=== PATIENT | female | born 1955 | race Caucasian/White ===

== ENCOUNTER 2017-04-18 23:26 | Emergency (ER) | payer BC ==
[2017-04-18] MEDS ORDERED: LORazepam INJ* 2 MG/ML 1 ML VIAL IV ONE (23:38)
[2017-04-18] MEDS ORDERED: NS 0.9% 1000 ML* 1,000 ML IV ONE (23:38)
--- OUTSIDE RECORDS SUMMARY | 2017-04-18 23:51 | XMS REPORT ---
:1955 External Reference #:[id number] Author Organization [facility] Address [address] [place] [address] Phone [phone] Care Team Providers Name Role Phone Jay Hicks MD Care Team Information Contracts Director Unavailable Jay Hicks MD Primary Care Physician Unavailable Payers Type Date Identification Numbers Payment Provider Subscriber Commercial Effective: Policy Number: BC/BS Of CHERELLE Butler 2009 [id number] [employer] Name: Darshan [address] [id number] PayID: [id number] [place] [address] Problems Date Description Provider Status Onset: 05/05/2010 Depressive disorder Reece Kimbrough M.D. Active Onset: 01/18/2011 Gastroesophageal reflux disease Jay Hicks M.D. Active Onset: 01/18/2011 Anemia Jay Hicks M.D. Active Onset: 03/23/2011 Hyperlipidemia Jay Hicks M.D. Active Onset: 11/09/2012 Obstructive sleep apnea syndrome Jay Hicks M.D. Active Onset: 11/11/2015 Knee pain Jay Hicks M.D. Active Onset: 04/13/2016 Carpal tunnel syndrome of left Jay Hicks M.D. Active wrist Onset: 04/12/2017 Pain in limb Jay Hicks M.D. Active Onset: 04/12/2017 Symptom of skin and integumentary Jay Hicks M.D. Active tissue Onset: 12/07/2016 Pulse slow Jay Hicks M.D. Active Onset: 10/09/2014 Blood chemistry abnormal Jay Hicks M.D. Inactive Inactive: 12/27/2016 Onset: 02/18/2016 Malaise and fatigue Jay Hicks M.D. Inactive Inactive: 12/27/2016 Onset: 02/18/2016 Iron deficiency anemia secondary to Jay Hicks M.D. Inactive inadequate dietary iron intake Inactive: 12/27/2016 Onset: 02/18/2016 Depressive disorder Jay Hicks M.D. Inactive Inactive: 12/27/2016 Onset: 04/13/2016 Iron deficiency Jay Hicks M.D. 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 needed Fexofenadine 11/03 Active Tablets 180mg 1 po qd prn [facility] Nasonex 04/29 Active Suspension 50mcg/Act 1unit 2 sprays Jay FTaras /2011 s each Shallish, nostril M.D. every day, as needed Calcium 500 +D 00 Active Tablets 500-400mg 1 po qd Unknown /0000 -Unit Benadryl Active Tablets 25mg one by Unknown /0000 mouth at bedtime Echinacea Active Capsules 62.5mg 3 by mouth Unknown three times a day as needed Note 04/13 Hx needs wrist Jay F. /2015 splint for Kurt, - left carpal M.D. 12/24 tunnel /2016 Physical 11/10 Hx treatment Jay FTra[facility] and Kurt, - evaluation M.D. 02/17 right knee pain Escitalopram 12/13 Hx Tablets 10mg 90tab take 1 F41.1 Jay F. Oxalate s tablet by Kurt, - mouth every M.D. Jublia 10/08 Hx Solution 10% 4ml apply to 110.1 Shwetha nail qd Jonny - Veronica-C 11/10 Bernie Contour 10/08 Hx Strips 100un use as 790.6 Shwetha Next Blood its directed to Jonny, Glucose Test - take Veronica-C 03/25 fasting blood sugar and one post prandial reading daily Bernie Microlet 10/08 Hx Misc 100un test qd 790.6 Shwetha Lancets its Kimberly Fuller-C 03/25 Hemetab 09/30 Hx Tablets 22-6-1-0. 180ta 2 by mouth Jay F. /2014 025mg bs every day Kurt - M.D. 02/28 Cymbalta 05/[address] 30mg 90cap 1 po qd Jay F. /2012 Part s Kurt - M.D. 08/20 Pravastatin 01/11 Hx Tablets 10mg 30tab Take One Jay F. Sodium s Tablet By Kurt, - Mouth Once M.D. 05/27 Calcium 600 + 11/03 Hx Tablets 600-400mg 2 PO qd [facility] Melatonin 11/03 Hx Capsules 1mg 1-2 po q prn [facility] Pravastatin 10/02 Hx Tablets 10mg 30tab 1 po qd Jay F. Sodium s Kurt - M.D. 11/03 Omeprazole 06/[address] 20mg 60cap take 1 Stephanie /2012 s capsule by Nenita, - mouth once [employer] 02/28 Doxycycline 05/28 Hx Capsules 100mg 2caps 2 po x one E906.4 Shwetha Hyclate dose Jonny, - Afnp-C 06/23 Lexapro 01/18 Hx Tablets 10mg 90tab 1 /2po qd Jay F. Kimberly Sierra M.D. 05/11 Permethrin 11/24 Hx Cream 5% 60gm apply to 133.0 skin from Erum, - neck to [employer] 01/18 soles feet; remove after 12-14 hrs Biferarx 09/26 Hx Tablets 22-6-1-0. 180ta 2 by mouth Jay F. 025mg bs every day Kimberly Hicks M.D. 09/30 Dcommand> 09/23 Hx Tablets 22-6-1-0. Jay F. 025mg Kimberly Hicks M.D. 01/18 Famotidine 06/12 Hx Tablets 20mg 60tab take 1 Jay F. s tablet by Kurt, - mouth M.D. 05/28 qd-bid Azithromycin 06/12 Hx Tablets 250mg 6tabs take 2 Jay . tablets by Kurt, - mouth on M.D. 06/19 day 1 1 tablet on days 2 through 5 Physical 12/31 Hx treatment Jay FTaras and Kurt - evaluation M.DTaras 03/01 Bilateral Carpal Tunnel Lexapro 03/18 Hx Tablets 20mg 120ta 1.5 po qd Jay FTaras bs Kimberly Hicks M.D. 11/24 Qvar 04/13 Hx Aerosol 40mcg/Act 1unit 2 puff bid Jay F. s Kimberly Hicks M.D. 12/20 Tussionex 04/06 Hx Liquid ER 100cc 1 tsp Lynn q12hrs prn Opal, - cough Afnp-C 04/13 Pen VK 03/30 Hx Tablets 500mg 20tab 1 po bid 462 Darian A. /2007 Kimberly Sloan M.D. 04/09 Entex Pse 01/05 Hx Caps ER 120-400 28cap 1 PO PO bid Stephanie 12HR s alesha Steiner - M.DTaras 03/30 Chantix 11/30 Hx 1unit 1 starter 305.1 Jay F. /2007 s pack for A Kurt, - month,then M.D. 02/28 refill maintenance packs Chantix 11/30 Hx Misc 1unit 1 starter Jay F. /2007 s pack as Kurt, - directed, M.DTaras 11/30 then refill maintenance packs x 3 months Remeron Soltab 04/07 Hx Tablets 15mg 30tab 1 PO hs Jay F. /2006 s Kurt - M.DTaras 11/30 Lexapro 06/16 Hx Tablets 20mg 90tab 1 po qd Jay F. /2006 s Kurt - M.DTaras 01/18 Nexium 04/05 Hx CPDR 40mg 90uni Take One Jay F. /2004 ts Capsule By Kurt, - Mouth Every M.D. Celebrex 11/20 Hx Tabs 200mg 60tab 1 po qd Mahnaz R jermaine Son - [employer]-C 01/05 Jenn 07/16 Hx 180mg 90uni 1 po qd Jay F. /2003 susan Hicks - M.DTaras 03/23 Nasonex 07/16 Hx 50mcg 1unit 2 sprays Jay F. s each Kurt, - nostril qd M.D. 04/29 Mentax 06/28 Hx Cream Cream 1Tube Apply [facility] Mahnaz To Web Greer Son, - Toes Q [employer]-C 01/05 Lotrimin CR 06/28 Hx 15gm apply bid Jay F. to Kurt, - afftected M.D. 01/05 Wrist Splint, 10/24 Hx 1unit RT-Hand Tian J. Restrictive /2002 s Medium; Finver, Flex/Extend - Wear ALL M.D. 12/23 Day Exept Sleep Lexapro 11/21 Hx 20mg 45uni 1 1\\2 po qd Jay F. /2001 susan Hicks - M.DTaras 06/16 Keflex 08/05 Hx 250mg 21uni 1 PO tid Jay F. Kimberly Marx M.D. 11/21 Penicillin VK 02/18 Hx 250mg 30uni One tid Israel Angulo Kimberly Ma M.D. 02/28 Jenn 09/26 Hx 60mg 60uni 1 PO bid Jay F. ts Kimberly Hicks M.D. 07/16 Nasonex 09/26 Hx 50mcg 1unit 2 Sprays Jay . s Each Kimberly Hicks Nostril qd M.DTaras 07/16 Amoxicillin 04/22 Hx Tablets 500mg 30tab 1 Tablet 3 Jay F. s Times Daily Kimberly Hicks M.D. 05/01 Entex Pse 04/22 Hx 20uni 1 bid prn Jay F. ts Congestion Kimberly Hicks M.D. 09/26 Tessalon 07/16 Hx 200mg 30uni Q 6 HR prn Israel Rodríguez Kimberly Ma M.D. 09/26 Robitussin ac 07/13 Hx 4Oz 1-2 TSP PO Israel Angulo Q4H prn Kimberly Mckeon Cough Eric.Sarthak 07/18 Tessalon 07/13 Hx 200mg 3samp 1 PO tid Israel Rodríguez les prn Kimberly Mckeon M.D. 07/16 Lo Ovral 04/28 Hx 1Pak Take One Daily as Medicine - Directed [facility] 01/15 Day Cycle Of Zovirax 06/12 Hx 200mg 40uni 1 PO 4-5 Shwetha ts Times Per Jonny, - Day Afnp-C 08/05 Amoxicillin 07/13 Hx Tablets 500mg 20tab 1 bid Ranjan STaras jermaine Downing M.D. - 07/23 Omeprazole CR Hx Capsules D 10mg Unknown /0000 - 06/23 Multivitamins Hx Tablets 30tab 1 po qd Unknown /0000 s - 11/13 Medications Administered in Office Medication Date Status Form Strength Qnty SIG Indications Ordering Provider TB Intradermal Administered Injection Shwetha Test 015 Jonny, Ivannp-C TB Intradermal Administered Injection Shwetha Test 014 Jonny, Afnp-C TB Intradermal Administered Injection Jay F. Test 013 Cb Hicks TB Intradermal Administered Injection Jay FTaras Test 012 Cb Hicks TB Intradermal Administered Injection Nurse, Test 999 Nurse Immunizations CPT Code Status Date Vaccine Lot # [id number] Given 03/23/2016 Influenza Vac, Quadrivalent, Slit Virus, Im [id number] Given 05/11/2012 Tdap Tetanus, W Pertussis [id number] Given 05/11/2012 DO Not Use Split Influenza Virus Vaccine [id number] Given 05/17/2005 Td Immunization, For Use In Individuals 7 Years Or [id number] Older [id number] Given 05/17/2005 Tetanus And Diptheria Adult Preservative Free >7Yrs Vital Signs Date Vital Result Comment 04/12/2017 BP Systolic 108 mmHg BP Diastolic 62 mmHg Heart Rate 68 /min Body Temperature 97.9 F Respiratory Rate 16 /min Height 66 inches 5'6" Weight 182.25 lb BMI (Body Mass Index) 29.4 kg/m2 12/07/2016 BP Systolic 100 mmHg BP Diastolic 66 mmHg Heart Rate 64 /min Body Temperature 98.2 F Respiratory Rate 16 /min Height 66 inches 5'6" Weight 172.00 lb BMI (Body Mass Index) 27.8 kg/m2 04/13/2016 BP Systolic 140 mmHg BP Diastolic 78 mmHg Heart Rate 64 /min Body Temperature 98.1 F Respiratory Rate 16 /min Height 66 inches 5'6" 03/23/2016 BP Systolic 112 mmHg BP Diastolic 70 mmHg Heart Rate 80 /min Body Temperature 97.9 F Height 66 inches 5'6" Weight 177.00 lb BMI (Body Mass Index) 28.6 kg/m2 02/18/2016 BP Systolic 122 mmHg BP Diastolic 80 mmHg Heart Rate 64 /min Body Temperature 98.7 F Respiratory Rate 18 /min Height 65.5 inches 5'5.50" Weight 177.38 lb BMI (Body Mass Index) 29.1 kg/m2 11/11/2015 BP Systolic 124 mmHg BP Diastolic 70 mmHg Heart Rate 72 /min Body Temperature 98.1 F Respiratory Rate 16 /min Height 65.5 inches 5'5.50" Weight 176.00 lb BMI (Body Mass Index) 28.8 kg/m2 07/28/2015 BP Systolic 134 mmHg BP Diastolic 74 mmHg Heart Rate 72 /min Body Temperature 98.1 F Respiratory Rate 16 /min Height 65.5 inches 5'5.50" Weight 181.12 lb BMI (Body Mass Index) 29.7 kg/m2 06/27/2015 BP Systolic 120 mmHg BP Diastolic 80 mmHg Heart Rate 60 /min Body Temperature 98.1 F Respiratory Rate 18 /min Height 65.5 inches 5'5.50" Weight 177.00 lb BMI (Body Mass Index) 29.0 kg/m2 05/07/2015 BP Systolic 124 mmHg BP Diastolic 80 mmHg Heart Rate 64 /min Body Temperature 97.9 F Respiratory Rate 18 /min Height 65.5 inches 5'5.50" Weight 177.00 lb BMI (Body Mass Index) 29.0 kg/m2 02/03/2015 BP Systolic 126 mmHg BP Diastolic 80 mmHg Heart Rate 64 /min Body Temperature 98.1 F Respiratory Rate 18 /min Height 65.5 inches 5'5.50" Weight 174.00 lb BMI (Body Mass Index) 28.5 kg/m2 01/15/2015 BP Systolic 124 mmHg BP Diastolic 70 mmHg Heart Rate 60 /min Body Temperature 97.8 F Respiratory Rate 16 /min Height 65.5 inches 5'5.50" Weight 174.00 lb BMI (Body Mass Index) 28.5 kg/m2 12/24/2014 BP Systolic 122 mmHg BP Diastolic 64 mmHg Heart Rate 64 /min Body Temperature 99.1 F Respiratory Rate 16 /min Height 65.5 inches 5'5.50" Weight 173.00 lb BMI (Body Mass Index) 28.3 kg/m2 Right Visual Acuity Distance 20/25 with glasses Left Visual Acuity Distance 20/20 12/13/2014 BP Systolic 118 mmHg BP Diastolic 78 mmHg Heart Rate 74 /min Body Temperature 98.1 F Respiratory Rate 16 /min Height 65.5 inches 5'5.50" Weight 177.00 lb BMI (Body Mass Index) 29.0 kg/m2 10/08/2014 BP Systolic 120 mmHg BP Diastolic 70 mmHg Heart Rate 74 /min Body Temperature 97.7 F Respiratory Rate 16 /min Height 65.5 inches 5'5.50" Weight 178.50 lb BMI (Body Mass Index) 29.2 kg/m2 08/20/2014 BP Systolic 120 mmHg BP Diastolic 70 mmHg Heart Rate 78 /min Body Temperature 99.3 F Respiratory Rate 17 /min Height 65.5 inches 5'5.50" Weight 180.12 lb BMI (Body Mass Index) 29.5 kg/m2 11/13/2013 BP Systolic 122 mmHg BP Diastolic 80 mmHg Heart Rate 76 /min Body Temperature 98.6 F Respiratory Rate 16 /min Height 65.5 inches 5'5.50" Weight 160.25 lb BMI (Body Mass Index) 26.3 kg/m2 06/18/2013 BP Systolic 142 mmHg BP Diastolic 88 mmHg Heart Rate 68 /min Body Temperature 98.2 F Height 67 inches 5'7" Weight 177.00 lb BMI (Body Mass Index) 27.7 kg/m2 11/09/2012 BP Systolic 128 mmHg BP Diastolic 82 mmHg Heart Rate 66 /min Body Temperature 99.1 F Respiratory Rate 18 /min Height 67 inches 5'7" Weight 170.00 lb BMI (Body Mass Index) 26.6 kg/m2 08/08/2012 BP Systolic 110 mmHg BP Diastolic 74 mmHg Heart Rate 72 /min Body Temperature 98.8 F Height 67 inches 5'7" Weight 173.50 lb BMI (Body Mass Index) 27.2 kg/m2 05/11/2012 BP Systolic 120 mmHg BP Diastolic 66 mmHg Heart Rate 98.2 /min Body Temperature 72.0 F Height 67 inches 5'7" Weight 176.00 lb BMI (Body Mass Index) 27.6 kg/m2 11/04/2011 BP Systolic 126 mmHg BP Diastolic 74 mmHg Heart Rate 78 /min Body Temperature 98.6 F Height 67 inches 5'7" Weight 169.00 lb BMI (Body Mass Index) 26.5 kg/m2 08/04/2011 BP Systolic 110 mmHg BP Diastolic 70 mmHg Heart Rate 64 /min Body Temperature 98.3 F Respiratory Rate 20 /min Height 67 inches 5'7" Weight 172.00 lb BMI (Body Mass Index) 26.9 kg/m2 06/24/2011 BP Systolic 126 mmHg BP Diastolic 80 mmHg Heart Rate 78 /min Body Temperature 99.0 F Height 67 inches 5'7" Weight 174.00 lb BMI (Body Mass Index) 27.2 kg/m2 05/28/2011 BP Systolic 110 mmHg BP Diastolic 72 mmHg Heart Rate 72 /min Body Temperature 97.6 F Respiratory Rate 15 /min Height 67 inches 5'7" Weight 178.00 lb BMI (Body Mass Index) 27.9 kg/m2 03/23/2011 BP Systolic 118 mmHg BP Diastolic 80 mmHg Heart Rate 68 /min Body Temperature 96.8 F Height 67 inches 5'7" Weight 168.00 lb BMI (Body Mass Index) 26.3 kg/m2 01/18/2011 BP Systolic 138 mmHg BP Diastolic 72 mmHg Heart Rate 72 /min Height 67 inches 5'7" Weight 171.00 lb BMI (Body Mass Index) 26.8 kg/m2 11/24/2010 BP Systolic 112 mmHg BP Diastolic 64 mmHg Heart Rate 82 /min Body Temperature 98.5 F Respiratory Rate 18 /min Height 67 inches 5'7" Weight 175.00 lb BMI (Body Mass Index) 27.4 kg/m2 07/02/2010 BP Systolic 126 mmHg BP Diastolic 70 mmHg Heart Rate 76 /min Height 67 inches 5'7" Weight 172.00 lb BMI (Body Mass Index) 26.9 kg/m2 06/12/2010 BP Systolic 140 mmHg BP Diastolic 80 mmHg Heart Rate 72 /min Body Temperature 99.0 F Height 67 inches 5'7" Weight 175.00 lb BMI (Body Mass Index) 27.4 kg/m2 05/05/2010 BP Systolic 118 mmHg BP Diastolic 80 mmHg Heart Rate 72 /min Body Temperature 98.7 F Respiratory Rate 16 /min Height 67 inches 5'7" Weight 180.00 lb BMI (Body Mass Index) 28.2 kg/m2 12/20/2009 BP Systolic 100 mmHg BP Diastolic 70 mmHg Heart Rate 72 /min Body Temperature 98.5 F Height 67 inches 5'7" Weight 180.00 lb BMI (Body Mass Index) 28.2 kg/m2 03/18/2009 BP Systolic 132 mmHg BP Diastolic 70 mmHg Heart Rate 72 /min Respiratory Rate 18 /min Height 67 inches 5'7" Weight 181.00 lb BMI (Body Mass Index) 28.3 kg/m2 07/17/2008 BP Systolic 134 mmHg BP Diastolic 80 mmHg Heart Rate 76 /min 04/13/2008 BP Systolic 142 mmHg BP Diastolic 72 mmHg Heart Rate 84 /min Body Temperature 98.2 F Respiratory Rate 16 /min Height 67 inches 5'7" Weight 174.00 lb BMI (Body Mass Index) 27.2 kg/m2 04/06/2008 BP Systolic 120 mmHg BP Diastolic 80 mmHg Heart Rate 80 /min Body Temperature 98.9 F Height 67 inches 5'7" Weight 179.00 lb BMI (Body Mass Index) 28.0 kg/m2 03/30/2008 BP Systolic 116 mmHg BP Diastolic 70 mmHg Heart Rate 84 /min Body Temperature 98.7 F Respiratory Rate 24 /min O2 % BldC Oximetry 95 % Height 67 inches 5'7" Weight 173.00 lb BMI (Body Mass Index) 27.1 kg/m2 12/01/2007 BP Systolic 128 mmHg BP Diastolic 80 mmHg Heart Rate 76 /min Height 67 inches 5'7" Weight 177.00 lb BMI (Body Mass Index) 27.7 kg/m2 04/07/2007 BP Systolic 122 mmHg BP Diastolic 80 mmHg Heart Rate 68 /min Body Temperature 98.2 F Height 67 inches 5'7" Weight 178.00 lb BMI (Body Mass Index) 27.9 kg/m2 06/16/2006 BP Systolic 108 mmHg BP Diastolic 62 mmHg Heart Rate 72 /min Body Temperature 98.6 F Height 67 inches 5'7" Weight 183.00 lb BMI (Body Mass Index) 28.7 kg/m2 08/31/2005 BP Systolic 102 mmHg BP Diastolic 68 mmHg Heart Rate 76 /min Body Temperature 99.2 F Height 67 inches 5'7" Weight 172.00 lb BMI (Body Mass Index) 26.9 kg/m2 05/17/2005 BP Systolic 120 mmHg BP Diastolic 70 mmHg Heart Rate 60 /min Height 67 inches 5'7" Weight 176.00 lb BMI (Body Mass Index) 27.6 kg/m2 05/10/2005 BP Systolic 120 mmHg BP Diastolic 78 mmHg Heart Rate 76 /min Respiratory Rate 16 /min 04/05/2005 BP Systolic 126 mmHg BP Diastolic 86 mmHg Heart Rate 72 /min Body Temperature 98.9 F Weight 175.00 lb 01/27/2005 BP Systolic 118 mmHg BP Diastolic 76 mmHg Heart Rate 76 /min Weight 170.00 lb 01/06/2004 BP Systolic 120 mmHg BP Diastolic 74 mmHg Heart Rate 84 /min Body Temperature 98.8 F 11/21/2003 BP Systolic 118 mmHg BP Diastolic 64 mmHg Heart Rate 80 /min 07/17/2003 BP Systolic 126 mmHg BP Diastolic 82 mmHg Heart Rate 84 /min Weight 165.00 lb 06/29/2003 BP Systolic 120 mmHg BP Diastolic 78 mmHg Heart Rate 60 /min Weight 160.00 lb 01/15/2003 BP Systolic 120 mmHg BP Diastolic 68 mmHg Heart Rate 72 /min Weight 157.00 lb 11/23/2002 BP Systolic 122 mmHg BP Diastolic 80 mmHg Weight 158.00 lb 11/08/2002 BP Systolic 120 mmHg BP Diastolic 80 mmHg Heart Rate 78 /min Weight 161.00 lb 10/24/2002 BP Systolic 112 mmHg BP Diastolic 60 mmHg Weight 160.00 lb 07/03/2002 BP Systolic 132 mmHg BP Diastolic 96 mmHg Heart Rate 72 /min Body Temperature 97.0 F Weight 163.00 lb 06/11/2002 BP Systolic 128 mmHg BP Diastolic 80 mmHg Heart Rate 70 /min Body Temperature 98.0 F Weight 160.00 lb 11/21/2001 BP Systolic 132 mmHg BP Diastolic 84 mmHg Heart Rate 84 /min Weight 157.00 lb 02/18/2001 BP Systolic 140 mmHg BP Diastolic 80 mmHg Heart Rate 100 /min Body Temperature 97.2 F Respiratory Rate 16 /min Weight 158.00 lb 09/26/2000 BP Systolic 132 mmHg BP Diastolic 80 mmHg Weight 154.00 lb 04/22/2000 BP Systolic 120 mmHg BP Diastolic 80 mmHg Body Temperature 98.9 F Weight 156.00 lb 07/14/1999 BP Systolic 130 mmHg BP Diastolic 74 mmHg Body Temperature 97.7 F Weight 152.00 lb 04/28/1999 BP Systolic 110 mmHg BP Diastolic 72 mmHg Body Temperature 98.7 F Weight 156.00 lb 09/15/1998 BP Systolic 120 mmHg BP Diastolic 72 mmHg 06/12/1998 Body Temperature 98.8 F Weight 145.00 lb 07/13/1997 Body Temperature 98.3 F Height 67 inches 5'7" Weight 135.00 lb Results Test Date Test Result H/L Range Note CBC Auto Diff 02/15/2017 White Blood Count 5.5 10^3/uL 3.5-10.8 Red Blood Count 4.83 10^6/uL 4.0-5.4 Hemoglobin 14.3 g/dL 12.0-16.0 Hematocrit 42 % 35-47 Mean Corpuscular Volume 88 fL 80-97 Mean Corpuscular Hemoglobin 30 pg 27-31 Mean Corpuscular HGB Conc 34 g/dL 31-36 Red Cell Distribution Width 14 % 10.5-15 Platelet Count 277 10^3/uL 150-450 Mean Platelet Volume 9 um3 7.4-10.4 Abs Neutrophils 3.2 10^3/uL 1.5-7.7 Abs Lymphocytes 1.5 10^3/uL 1.0-4.8 Abs Monocytes 0.5 10^3/uL 0-0.8 Abs Eosinophils 0.3 10^3/uL 0-0.6 Abs Basophils 0.1 10^3/uL 0-0.2 Abs Nucleated RBC 0 10^3/uL Granulocyte % 57.9 % 38-83 Lymphocyte % 26.9 % 25-47 Monocyte % 9.2 % High 1-9 Eosinophil % 5.0 % 0-6 Basophil % 1.0 % 0-2 Nucleated Red Blood Cells % 0.1 Iron & Iron Binding Capacity 02/15/2017 Iron 106 g/dL 50-212 Unsaturated Iron Binding 261 g/dL Total Iron Binding Capacity 367 g/dL 250-450 % Iron Saturation 29 % 15-55 Laboratory test finding 02/15/2017 Ferritin 31.8 ng/mL 11-307 CBC Auto Diff 08/17/2016 White Blood Count 5.9 10^3/uL 3.5-10.8 Red Blood Count 5.16 10^6/uL 4.0-5.4 Hemoglobin 14.3 g/dL 12.0-16.0 Hematocrit 43 % 35-47 Mean Corpuscular Volume 83 fL 80-97 Mean Corpuscular Hemoglobin 28 pg 27-31 Mean Corpuscular HGB Conc 33 g/dL 31-36 Red Cell Distribution Width 21 % High 10.5-15 Platelet Count 233 10^3/uL 150-450 Mean Platelet Volume 9 um3 7.4-10.4 Abs Neutrophils 3.7 10^3/uL 1.5-7.7 Abs Lymphocytes 1.5 10^3/uL 1.0-4.8 Abs Monocytes 0.3 10^3/uL 0-0.8 Abs Eosinophils 0.2 10^3/uL 0-0.6 Abs Basophils 0 10^3/uL 0-0.2 Abs Nucleated RBC 0 10^3/uL Granulocyte % 63.8 % 38-83 Lymphocyte % 26.2 % 25-47 Monocyte % 5.9 % 1-9 Eosinophil % 3.4 % 0-6 Basophil % 0.7 % 0-2 Nucleated Red Blood Cells % 0.1 Iron & Iron Binding Capacity 08/17/2016 Iron 76 g/dL 50-212 Unsaturated Iron Binding 257 g/dL Total Iron Binding Capacity 333 g/dL 250-450 % Iron Saturation 23 % 15-55 Laboratory test finding 08/17/2016 Ferritin 32.9 ng/mL 11-307 CBC Auto Diff 06/01/2016 White Blood Count 6.8 10^3/uL 3.5-10.8 Red Blood Count 4.93 10^6/uL 4.0-5.4 Hemoglobin 11.7 g/dL Low 12.0-16.0 Hematocrit 37 % 35-47 Mean Corpuscular Volume 75 fL Low 80-97 Mean Corpuscular Hemoglobin 24 pg Low 27-31 Mean Corpuscular HGB Conc 32 g/dL 31-36 Red Cell Distribution Width 17 % High 10.5-15 Platelet Count 362 10^3/uL 150-450 Mean Platelet Volume 9 um3 7.4-10.4 Abs Neutrophils 3.3 10^3/uL 1.5-7.7 Abs Lymphocytes 2.4 10^3/uL 1.0-4.8 Abs Monocytes 0.5 10^3/uL 0-0.8 Abs Eosinophils 0.4 10^3/uL 0-0.6 Abs Basophils 0.1 10^3/uL 0-0.2 Abs Nucleated RBC 0 10^3/uL Granulocyte % 49.0 % 38-83 Lymphocyte % 36.0 % 25-47 Monocyte % 7.8 % 1-9 Eosinophil % 6.0 % 0-6 Basophil % 1.2 % 0-2 Nucleated Red Blood Cells % 0.1 Iron & Iron Binding Capacity 06/01/2016 Iron 54 g/dL 50-212 Unsaturated Iron Binding 464 g/dL Total Iron Binding Capacity 518 g/dL High 250-450 % Iron Saturation 10 % Low 15-55 Laboratory test finding 06/01/2016 Ferritin < 10.0 ng/mL Low 11-307 Vitamin B12 708 pg/mL 180-914 1 Erythropoietin 35.8 mIU/mL 2.6 - 18.5 2 Laboratory test finding 04/13/2016 Ferritin <3 ng/mL Low 15-200 3 Serum Iron 22 g/dL Low 60-150 4 Laboratory test finding 02/18/2016 Free T4 1.00 ng/dL 0.75-1.54 5 TSH 2.55 mIU/L 0.50-6.00 CBC Electronic (Fma) 02/18/2016 WBC 5.3 3.6-9.6 RBC 4.94 3.90-5.70 Hemoglobin (Fma/CMC/CTX) 12.5 g/dL 12.1 - 17.2 Hematocrit (Fma/CMC/CTX) 38.6 % 36.1 - 50.3 Platelets 365 10^3/ul 150-400 Lymph% 32.9 % 17.0-48.0 Mixed% 5.4 Neutrophils % 61.7 Mean Corpuscular Vol 78 Low 82.2-97.4 Mean Corpuscular Hemoglobin 25.2 Low 27.6-33.3 Mean Corpuscular Hemo Concen 32.3 32.0-36.0 RDW 15.2 High 11.6-13.7 Mean Platelet Volume 7.5 5.5-11.0 Comprehensive Metabolic Prof 02/18/2016 Sodium 139 mEq/L 134-149 Potassium 5.4 mEq/L 3.6-5.5 Chloride 100 mEq/L 94-112 Carbon Dioxide 24 mEq/L 21-32 Glucose 98 mg/dL 70-105 BUN 10 mg/dL 6-26 Creatinine 0.8 mg/dL 0.6-1.4 BUN/Creat Ratio 12.5 CALC 8.0-36.0 Calcium 10.5 mg/dL High 8.6-10.2 6 Total Protein 7.2 g/dL 6.4-8.3 Albumin 4.3 g/dL 3.8-5.5 Globulin 2.9 g/dL 2.0-4.8 A/G Ratio 1.5 CALC 0.6-2.3 Alk. Phosphatase 70 U/L 30-110 Alt (SGPT) 12 U/L 7-35 Ast (Sgot) 27 U/L 5-34 Total Bilirubin 0.3 mg/dL 0.2-1.3 GFR Non- >60 ml/min/1.73m^ >=60 GFR >60 ml/min/1.73m^ >=60 Ict Hemoccult (a) 05/20/2015 Ict Hemoccult (1) neg 05/11/15 Ict Hemoccult-(2) neg 05/12/15 Ict-Hemoccult (3) neg 05/14/15 CBC Electronic (a) 05/09/2015 WBC 6.1 3.6-9.6 RBC 4.71 3.90-5.70 Hemoglobin (Fma/CMC/CTX) 11.9 g/dL Low 12.1 - 17.2 Hematocrit (Fma/CMC/CTX) 37.5 % 36.1 - 50.3 Platelets 384 10^3/ul 150-400 Lymph% 33.2 % 17.0-48.0 Mixed% 4.5 Neutrophils % 62.3 Mean Corpuscular Vol 80 Low 82.2-97.4 Mean Corpuscular Hemoglobin 25.3 Low 27.6-33.3 Mean Corpuscular Hemo Concen 31.8 Low 32.0-36.0 RDW 15.6 High 11.6-13.7 Mean Platelet Volume 7.5 5.5-11.0 Iron And Tibc 05/09/2015 Iron Bind.Cap.(Tibc) 426 g/dL 250-450 7 Uibc 390 g/dL High 150-375 7, 8 Iron, Serum 36 g/dL 35-155 7, 9 Iron Saturation 8 % Low 15-55 7 Laboratory test finding 05/09/2015 Ferritin 4 ng/mL Low 15-200 10 Laboratory test finding 02/03/2015 Ferritin, Serum 4 ng/mL Low 15-150 11 Reticulocyte Count 0.8 % 0.6-2.6 11 Iron And Tibc 02/03/2015 Iron Bind.Cap.(Tibc) 395 g/dL 250-450 11 Uibc 363 g/dL 150-375 11 Iron, Serum 32 g/dL Low 35-155 11 Iron Saturation 8 % Low 15-55 11 CBC Electronic ([facility]) 02/03/2015 WBC 5.2 3.6-9.6 RBC 4.87 3.90-5.70 Hemoglobin (Fma/CMC/CTX) 12.4 g/dL 12.1 - 17.2 Hematocrit (Fma/CMC/CTX) 38.9 % 36.1 - 50.3 Platelets 354 10^3/ul 150-400 Lymph% 35.2 % 17.0-48.0 Mixed% 6.5 Neutrophils % 58.3 Mean Corpuscular Vol 80 Low 82.2-97.4 Mean Corpuscular Hemoglobin 25.5 Low 27.6-33.3 Mean Corpuscular Hemo Concen 32.0 32.0-36.0 RDW 15.4 High 11.6-13.7 Mean Platelet Volume 7.5 5.5-11.0 Basic Metabolic Profile 02/03/2015 Sodium 137 mEq/L 134-149 Potassium 4.4 mEq/L 3.6-5.5 Chloride 101 mEq/L 94-112 Carbon Dioxide 27 mEq/L 21-32 Glucose 80 mg/dL 70-105 BUN 15 mg/dL 6-26 Creatinine 0.7 mg/dL 0.6-1.4 BUN/Creat Ratio 21.4 CALC 8.0-36.0 Calcium 9.8 mg/dL 8.6-10.2 GFR Non- >60 ml/min/1.73m^ >=60 GFR >60 ml/min/1.73m^ >=60 Pap HPV High Risk 12/24/2014 Diagn See Comment: 12 Adeq See Comment: 13 [email or web address] See Comment: 14 Perfor See Comment: 15 Comm . Note See Comment: 16 Iglbp See Comment: 17 HPV, high-risk Negative Negative 18 Laboratory test finding 12/24/2014 PDF [id number] SEE IMAGE Laboratory test finding 12/13/2014 Hemoglobin A1c 5.4 % 4.1-5.7 (Fma/CMC,CX) Laboratory test finding 08/20/2014 Serum Iron 25 g/dL Low 60-150 19 Comprehensive Metabolic 08/20/2014 Sodium 139 mEq/L 134-149 Prof Potassium 4.0 mEq/L 3.6-5.5 Chloride 101 mEq/L 94-112 Carbon Dioxide 26 mEq/L 21-32 Glucose 120 mg/dL High 70-105 20 BUN 13 mg/dL 6-26 Creatinine 0.8 mg/dL 0.6-1.4 BUN/Creat Ratio 16.3 CALC 8.0-36.0 Calcium 9.8 mg/dL 8.6-10.2 Total Protein 7.4 g/dL 6.4-8.3 Albumin 4.4 g/dL 3.8-5.5 Globulin 3.0 g/dL 2.0-4.8 A/G Ratio 1.5 CALC 0.6-2.3 Alk. Phosphatase 58 U/L 30-110 Alt (SGPT) 11 U/L 7-35 Ast (Sgot) 25 U/L 5-34 Total Bilirubin 0.3 mg/dL 0.2-1.3 Laboratory test finding 08/20/2014 Free T4 0.95 ng/dL 0.75-1.54 Laboratory test finding 08/20/2014 Sed Rate 7 mm (Fma/CMC/Centrex) CBC Electronic (a) 08/20/2014 WBC 4.6 3.6-9.6 RBC 4.75 3.90-5.70 Hemoglobin (Fma/CMC/CTX) 11.5 g/dL Low 12.1 - 17.2 Hematocrit (Fma/CMC/CTX) 36.2 % 36.1 - 50.3 Platelets 350 10^3/ul 150-400 Lymph% 31.2 % 17.0-48.0 Mixed% 6.7 Neutrophils % 62.1 Mean Corpuscular Vol 76 Low 82.2-97.4 21 Mean Corpuscular Hemoglobin 24.2 Low 27.6-33.3 Mean Corpuscular Hemo Concen 31.8 Low 32.0-36.0 RDW 15.8 High 11.6-13.7 Mean Platelet Volume 7.5 5.5-11.0 Laboratory test finding 11/13/2013 Thin Prep W/HPV SEE NOTE 22 Lipid Profile 09/11/2013 Cholesterol 214 mg/dL High 120-200 Triglycerides 68 mg/dL 30-200 HDL Cholesterol 65 mg/dL 30-85 LDL (Calculated) 135 CALC High 0-129 VLDL Cholesterol 14 mg/dL 0-50 HDL Risk Factor 3.3 CALC 0.0-4.4 Comprehensive Metabolic Prof 09/11/2013 Sodium 140 mEq/L 134-149 Potassium 4.8 mEq/L 3.6-5.5 Chloride 104 mEq/L 94-112 Carbon Dioxide 26 mEq/L 21-32 Glucose 99 mg/dL 70-105 BUN 17 mg/dL 6-26 Creatinine 0.9 mg/dL 0.6-1.4 BUN/Creat Ratio 18.9 CALC 8.0-36.0 Calcium 8.7 mg/dL 8.6-10.2 Total Protein 7.0 g/dL 6.3-8.1 Albumin 4.3 g/dL 3.8-5.5 Globulin 2.7 g/dL 2.0-4.8 A/G Ratio 1.6 CALC 0.6-2.3 Alk. Phosphatase 83 U/L 30-110 Alt (SGPT) 17 U/L 7-35 Ast (Sgot) 18 U/L 5-34 Total Bilirubin 0.3 mg/dL 0.2-1.3 Laboratory test finding 09/11/2013 TSH 3.78 mIU/L 0.50-6.00 CK 188 U/L High 26-140 23 Complete Blood Count 09/11/2013 WBC 5.7 x10^3/UL 3.6-9.6 RBC 4.92 x10^6/UL 3.90-5.70 HGB 12.6 g/dL 12.1-17.2 HCT 39 % 36-50 MCV 80.0 fL Low 82.2-97.4 MCH 25.6 pg Low 27.6-33.3 MCHC 32.0 g/dL Low 33.0-35.5 RDW 14.1 % High 11.6-13.7 PLT 325 x10^3/UL 150-400 MPV 8.3 fL 7.4-10.4 Gran # 3.7 x10^3/UL 1.5-7.2 Lymph# 1.7 x10^3/UL 0.7-4.9 [place]# 0.3 x10^3/UL 0.1-0.9 Gran % 63.3 % 42.2-75.2 Lymph % 31.0 % 20.5-51.1 [place]% 5.7 % 1.7-9.3 Laboratory test finding 09/11/2013 Serum Iron 52 g/dL Low 60-150 24 Ict Hemoccult (Fma) 12/02/2012 Ict Hemoccult (1) neg Ict Hemoccult-(2) neg Ict-Hemoccult (3) neg Laboratory test finding 11/27/2012 Iron 45 g/dL Low 60-150 25 Lipid Profile 11/27/2012 Cholesterol 210 mg/dL High 120-200 HDL 49 mg/dL 30-85 Triglycerides 123 mg/dL 30-200 HDL Risk Factor 4.3 CALC 0.0-4.4 LDL (Calculated) 136 CALC High 0-129 VLDL (Calculated) 25 mg/dL 0-50 Comprehensive Metabolic Prof 11/27/2012 Albumin 4.3 g/dL 3.8-5.5 Alk. Phos. 68 U/L 30-110 Alt (SGPT) 9 U/L 7-35 Ast (Sgot) 24 U/L 5-34 BUN 17 mg/dL 6-26 Calcium 10.1 mg/dL 8.6-10.2 Chloride 105 mEq/L 94-112 Creatinine 1.0 mg/dL 0.6-1.4 Carbon Dioxide 28 mEq/L 21-32 Glucose 100 mg/dL 70-105 Sodium 139 mEq/L 134-149 Total Bilirubin 0.5 mg/dL 0.2-1.3 Total Protein 7.2 g/dL 6.3-8.1 Potassium 4.9 mEq/L 3.6-5.5 Globulin 3.0 g/dL 2.0-4.8 A/G Ratio 1.4 Calc 0.6-2.3 BUN/Creat Ratio 17.2 Calc 8.0-36.0 Laboratory test finding 11/27/2012 TSH 3.89 mIU/L 0.50-6.00 Creatine Kinase 178 U/L High 26-140 26 CBC Electronic (Fma) 11/27/2012 WBC 5.0 3.6-9.6 RBC 4.77 3.90-5.70 Hemoglobin (Fma/CMC/CTX) 12.0 g/dL Low 12.1 - 17.2 Hematocrit (Fma/CMC/CTX) 38.1 % 36.1 - 50.3 Platelets 326 10^3/ul 150-400 Lymph% 35.7 20.5-51.1 Mixed% 5.7 Neutrophils % 58.6 Mean Corpuscular Vol 80 Low 82.2-97.4 Mean Corpuscular Hemoglobin 25.1 Low 27.6-33.3 Mean Corpuscular Hemo Concen 31.5 Low 32.0-36.0 RDW 14.4 High 11.6-13.7 Mean Platelet Volume 8.3 6.5-11.0 Laboratory test 08/08/2012 Thin Prep SEE NOTE 27 finding W/HPV(Lsil/MADDY/Asc) Laboratory test 05/19/2012 Iron 50 g/dL Low 60-150 28 finding Lipid Profile 05/19/2012 Cholesterol 211 mg/dL High 120-200 HDL 50 mg/dL 30-85 Triglycerides 138 mg/dL 30-200 HDL Risk Factor 4.2 CALC 0.0-4.4 LDL (Calculated) 133 CALC High 0-129 VLDL (Calculated) 28 mg/dL 0-50 Comprehensive Metabolic Prof 05/19/2012 Albumin 4.7 g/dL 3.8-5.5 Alk. Phos. 82 U/L 30-110 Alt (SGPT) 13 U/L 7-35 Ast (Sgot) 28 U/L 5-34 BUN 20 mg/dL 6-26 Calcium 10.0 mg/dL 8.6-10.2 Chloride 102 mEq/L 94-112 Creatinine 0.9 mg/dL 0.6-1.4 Carbon Dioxide 28 mEq/L 21-32 Glucose 97 mg/dL 70-105 Sodium 138 mEq/L 134-149 Total Bilirubin 0.4 mg/dL 0.2-1.3 Total Protein 7.8 g/dL 6.3-8.1 Potassium 4.7 mEq/L 3.6-5.5 Globulin 3.1 g/dL 2.0-4.8 A/G Ratio 1.5 Calc 0.6-2.3 BUN/Creat Ratio 23.5 Calc 8.0-36.0 Laboratory test finding 05/19/2012 TSH 2.99 mIU/L 0.50-6.00 Creatine Kinase 170 U/L High 26-140 29 CBC Electronic (Fma) 05/19/2012 WBC 6.0 3.6-9.6 RBC 5.21 3.90-5.70 Hemoglobin (Fma/CMC/CTX) 13.1 g/dL 12.1 - 17.2 Hematocrit (Fma/CMC/CTX) 40.4 % 36.1 - 50.3 Platelets 360 10^3/ul 150-400 Lymph% 31.2 20.5-51.1 Mixed% 5.0 Neutrophils % 63.8 Mean Corpuscular Vol 78 Low 82.2-97.4 Mean Corpuscular Hemoglobin 25.1 Low 27.6-33.3 Mean Corpuscular Hemo Concen 32.3 32.0-36.0 RDW 14.0 High 11.6-13.7 Mean Platelet Volume 8.6 6.5-11.0 Laboratory test finding 01/05/2012 Iron 49 g/dL Low 60-150 30 Lipid Profile 01/05/2012 Cholesterol 266 mg/dL High 120-200 HDL 52 mg/dL 30-85 Triglycerides 184 mg/dL 30-200 HDL Risk Factor 5.2 CALC High 0.0-4.4 LDL (Calculated) 178 CALC High 0-129 VLDL (Calculated) 37 mg/dL 0-50 Comprehensive Metabolic Prof 01/05/2012 Albumin 4.7 g/dL 3.8-5.5 Alk. Phos. 74 U/L 30-110 Alt (SGPT) 22 U/L 7-35 Ast (Sgot) 37 U/L High 5-34 31 BUN 14 mg/dL 6-26 Calcium 9.6 mg/dL 8.6-10.2 Chloride 101 mEq/L 94-112 Creatinine 0.8 mg/dL 0.6-1.4 Carbon Dioxide 23 mEq/L 21-32 Glucose 96 mg/dL 70-105 Sodium 138 mEq/L 134-149 Total Bilirubin 0.3 mg/dL 0.2-1.3 Total Protein 7.3 g/dL 6.3-8.1 Potassium 5.5 mEq/L 3.6-5.5 Globulin 2.6 g/dL 2.0-4.8 A/G Ratio 1.8 Calc 0.6-2.2 BUN/Creat Ratio 18.9 Calc 8.0-36.0 Laboratory test finding 01/05/2012 TSH 3.52 mIU/L 0.50-6.00 Ferritin < 3 ng/mL Low 15-200 32 CBC Electronic (a) 01/05/2012 WBC 4.5 3.6-9.6 RBC 5.17 3.90-5.70 Hemoglobin (Fma/CMC/CTX) 12.1 g/dL 12.1 - 17.2 Hematocrit (Fma/CMC/CTX) 39.4 % 36.1 - 50.3 Platelets 376 10^3/ul 150-400 Lymph% 33.6 20.5-51.1 Mixed% 6.2 Neutrophils % 60.2 Mean Corpuscular Vol 76 Low 82.2-97.4 Mean Corpuscular Hemoglobin 23.5 Low 27.6-33.3 Mean Corpuscular Hemo Concen 30.8 Low 32.0-36.0 RDW 16.0 High 11.6-13.7 Mean Platelet Volume 8.5 6.5-11.0 Laboratory test finding 12/06/2011 Rubella Antibodies, Igg >400 IU/mL 33 CBC Electronic (a) 10/06/2011 WBC 5.6 3.6-9.6 RBC 5.22 3.90-5.70 Hemoglobin (Fma/CMC/CTX) 11.4 g/dL Low 12.1 - 17.2 Hematocrit (Fma/CMC/CTX) 37.3 % 36.1 - 50.3 Platelets 416 10^3/ul High 150-400 Lymph% 33.4 20.5-51.1 Mixed% 5.8 Neutrophils % 60.8 Mean Corpuscular Vol 72 Low 82.2-97.4 Mean Corpuscular Hemoglobin 21.8 Low 27.6-33.3 Mean Corpuscular Hemo Concen 30.4 Low 32.0-36.0 RDW 17.2 High 11.6-13.7 Mean Platelet Volume 9.4 6.5-11.0 Laboratory test finding 10/06/2011 Iron 24 g/dL Low 60-150 34 Lipid Profile 09/28/2011 Cholesterol 242 mg/dL High 120-200 HDL 46 mg/dL 30-85 Triglycerides 257 mg/dL High 30-200 HDL Risk Factor 5.2 CALC High 0.0-4.0 LDL (Calculated) 144 CALC High 0-129 VLDL (Calculated) 51 mg/dL High 0-50 Laboratory test finding 09/28/2011 LDL (Direct) 155 mg/dL High 0-130 Ua - Micro (a) 08/04/2011 Appearance CLEAR Color YELLOW Glucose NEG Bilirubin NEG Ketones NEG SP Grav >=1.030 Blood TRACE-INTACT PH 6.0 Protein NEG Urobil 0.2 Nitrite NEG Leukocytes (Fma/CMC/Centrex) NEG Hyaline - /Lpf Granular - /Lpf WBC (Fma,Centrex) 0-1 RBC 1-2 Mucus - /Lpf Epith RARE /Lpf Bacteria - /Hpf Amorphous - /Lpf Crystals, Fluid (Fma/CMC/CTX) - Z#Comments - Laboratory test 08/04/2011 Thin Prep W/HPV(Lsil/MADDY/Asc) SEE NOTE 35 finding CBC Electronic (a) 06/08/2011 WBC 5.2 3.6-9.6 RBC 5.19 3.90-5.70 Hemoglobin (Fma/CMC/CTX) 9.8 g/dL Low 12.1 - 17.2 Hematocrit (Fma/CMC/CTX) 33.2 % Low 36.1 - 50.3 Platelets 500 10^3/ul High 150-400 Lymph% 26.0 20.5-51.1 Mixed% 5.9 Neutrophils % 68.1 Mean Corpuscular Vol 64 Low 82.2-97.4 Mean Corpuscular Hemoglobin 18.8 Low 27.6-33.3 Mean Corpuscular Hemo Concen 29.5 Low 32.0-36.0 RDW 16.9 High 11.6-13.7 Mean Platelet Volume 9.7 6.5-11.0 Laboratory test finding 06/08/2011 Iron 27 g/dL Low 60-150 36 Laboratory test finding 06/08/2011 Reticulocyte Count 0.7 % 0.5-1.5 37 Laboratory test finding 05/28/2011 Tick Testing, B Burgdor Positive 38 CBC Electronic ([facility]) 04/05/2011 WBC 4.4 3.6-9.6 RBC 4.92 3.90-5.70 Hemoglobin (Fma/CMC/CTX) 9.1 g/dL Low 12.1 - 17.2 Hematocrit (Fma/CMC/CTX) 30.5 % Low 36.1 - 50.3 Platelets 545 10^3/ul High 150-400 Lymph% 36.7 20.5-51.1 Mixed% 6.3 Neutrophils % 57.0 Mean Corpuscular Vol 62 Low 82.2-97.4 Mean Corpuscular Hemoglobin 18.6 Low 27.6-33.3 Mean Corpuscular Hemo Concen 29.9 Low 32.0-36.0 RDW 17.0 High 11.6-13.7 Mean Platelet Volume 9.5 6.5-11.0 Ua - Micro (a) 04/05/2011 Appearance CLEAR Color YELLOW Glucose NEG Bilirubin NEG Ketones NEG SP Grav 1.025 Blood TRACE-INTACT PH 7.0 Protein NEG Urobil 0.2 Nitrite NEG Leukocytes (Fma/CMC/Centrex) NEG Hyaline - /Lpf Granular - /Lpf WBC (a,Centrex) 1-2 RBC 0-2 Mucus - /Lpf Epith OCC /Lpf Bacteria - /Hpf Amorphous - /Lpf Crystals, Fluid (Fma/CMC/CTX) - Z#Comments - Laboratory test finding 04/05/2011 Iron 26 g/dL Low 60-150 39 Comprehensive Metabolic Prof 04/05/2011 Albumin 4.8 g/dL 3.8-5.5 Alk. Phos. 77 U/L 30-110 Alt (SGPT) 9 U/L 7-35 Ast (Sgot) 22 U/L 5-34 BUN 19 mg/dL 6-26 Calcium 10.0 mg/dL 8.6-10.2 Chloride 105 mEq/L 94-112 Creatinine 1.0 mg/dL 0.6-1.4 Carbon Dioxide 25 mEq/L 21-32 Glucose 102 mg/dL 70-105 Sodium 141 mEq/L 134-149 Total Bilirubin 0.3 mg/dL 0.2-1.3 Total Protein 7.5 g/dL 6.3-8.1 Potassium 5.0 mEq/L 3.6-5.5 Globulin 2.7 g/dL 2.0-4.8 A/G Ratio 1.8 Calc 0.6-2.2 BUN/Creat Ratio 19.5 Calc 8.0-36.0 Laboratory test finding 04/05/2011 Reticulocyte Count 1.1 % 0.5-1.5 40 Laboratory test finding 04/05/2011 [facility] see scanned Ict Hemoccult (a) 03/16/2011 Ict Hemoccult (1) 03/10/11 NEG Ict Hemoccult-(2) 03/12/11 NEG Ict-Hemoccult (3) 03/13/11 NEG Laboratory test finding 01/18/2011 Iron 13 g/dL Low 60-150 41 CBC Electronic ([facility]) 01/18/2011 WBC 5.9 3.6-9.6 RBC 4.23 3.90-5.70 Hemoglobin (Fma/CMC/CTX) 7.7 g/dL Low 12.1 - 17.2 Hematocrit (Fma/CMC/CTX) 25.7 % Low 36.1 - 50.3 Platelets 528 10^3/ul High 150-400 42 Lymph% 29.9 20.5-51.1 Mixed% 8.4 Neutrophils % 61.7 Mean Corpuscular Vol 61 Low 82.2-97.4 Mean Corpuscular Hemoglobin 18.2 Low 27.6-33.3 Mean Corpuscular Hemo Concen 29.9 Low 32.0-36.0 RDW 17.1 High 11.6-13.7 Mean Platelet Volume 8.9 6.5-11.0 Laboratory test finding 01/18/2011 Reticulocyte Count 0.8 % 0.5-1.5 43 Surgical Pathology 10/05/2010 Surgical Pathology 44 <SEE NOTE> Laboratory test finding 09/16/2010 Ferritin < 10 NG/ML Low 11.0-307 CBC No Diff 09/16/2010 White Blood Count 4.8 CUMM 4.8-10.8 Red Cell Count 3.43 CUMM Low 4.2-5.4 Hemoglobin 7.4 g/dL Low 12.0-16.0 Hematocrit 24 % Low 35-47 Mean Corpuscular Volume 69 um3 Low 79-97 45 Mean Corpuscular Hemoglob 22 pg Low 27-31 Mean Corpuscular HGB Cone 31 g/dL Low 32-36 Redcell Distribution WDTH 17 % High 10.5-15 Platelet Count 408 CUMM 150-450 Mean Platelet Volume 8.5 um3 7.4-10.4 Ict Hemoccult (Fma) 09/03/2010 Ict Hemoccult (1) neg Ict Hemoccult-(2) neg Ict-Hemoccult (3) neg Ua - Non Micro (Fma) 07/02/2010 Appearance CLEAR Color YELLOW Glucose NEG Bilirubin NEG Ketones NEG SP Grav 1.015 Blood NEG PH 5.5 Protein NEG Urobil 0.2 Nitrite NEG Leukocytes (Fma/CMC/Centrex) NEG Laboratory test 07/02/2010 Thin Prep SEE NOTE 46 finding W/HPV(Lsil/MADDY/Asc) Urine Drug SCR ED 04/21/2010 Amphetamines Urine Screen NONE DETECTED None Detect & Pain Clinic Barbituates Urine Screen NONE DETECTED None Detect Benzodiazepine Ur Screen NONE DETECTED None Detect Cannabinoid Urine Screen NONE DETECTED None Detect Cocaine Metabolites Urine NONE DETECTED None Detect Opiates Urine Screen NONE DETECTED None Detect PCP Urine Screen NONE DETECTED None Detect 47 Urinalysis W/Microscopic 04/21/2010 Ua Color YELLOW Yellow Appearance-Urine CLEAR Clear Specific [place]orne-Ur 1.007 Low 1.010-1.030 Esterase-Urine TRACE Negative Nitrite NEGATIVE Negative Pynzinooplcy-Ed-HNA NEGATIVE Negative Protein-Urine NEGATIVE Negative PH-Urine 5.5 5-9 Blood-Urine TRACE Negative Ketones-Urine NEGATIVE Negative Bilirubin-Ur NEGATIVE Negative Glucose-Urine NEGATIVE Negative WBC-Urine 3-5 0-5 RBC-Urine 0-2 0-2 Epith Cells-Ur RARE None Bacteria-Urine TRACE None Amorphous Sed-U TRACE None CBC With Electronic Diff 04/21/2010 White Blood Count 6.9 CUMM 4.8-10.8 Red Cell Count 4.57 CUMM 4.2-5.4 Hemoglobin 10.8 g/dL Low 12.0-16.0 Hematocrit 33 % Low 35-47 Mean Corpuscular Volume 72 um3 Low 79-97 Mean Corpuscular Hemoglob 24 pg Low 27-31 Mean Corpuscular HGB Cone 33 g/dL 32-36 Redcell Distribution WDTH 16 % High 10.5-15 Platelet Count 365 CUMM 150-450 Mean Platelet Volume 7.8 um3 7.4-10.4 Manual Differential 04/21/2010 Polysegmented Neutrophil 76 % 38-83 Lymphocyte 22 % Low 25-47 Monocyte 1 % 0-13 Eosinophil 1 % 0-6 Absolute Neutrophil Count 5.2 Microcytosis 1+ Hypochromasia 1+ Comp Metabolic Panel 04/21/2010 Sodium 139 mmol/L 135-145 Potassium 3.4 mmol/L Low 3.5-5.0 Chloride 108 mmol/L 101-111 Co2 (Carbon Dioxide) 24.0 mmol/L 22-32 Anion Gap 7.0 mmol/L 2-11 48 Glucose 98 mg/dL 70-100 BUN 14 mg/dL 6-24 Creatinine 0.70 mg/dL 0.50-1.40 One Over Creatinine 1.40 BUN/Creatinine Ratio 20.0 8-20 Calcium 9.0 mg/dL 8.1-9.9 Total Protein 6.5 GM/DL 6.2-8.1 Albumin 4.0 GM/DL 3.6-5.4 Globulin 2.5 GM/DL 2-4 Albumin/Globulin Ratio 1.6 1-3 Bilirubin Total 0.4 mg/dL 0.4-1.5 49 Alkaline Phosphatase 71 U/L 30-110 Alt (SGPT) 13 U/L Low 14-54 Ast (Sgot) 24 U/L 12-42 eGFR Non- 92.0 > 60 eGFR 111.3 > 60 50 Laboratory test finding 04/21/2010 Acetaminophen < 10 g/mL Low 10-30 51 Alcohol 120.0 mg/dL High None Detected 52 Salicylate < 4.0 mg/dL Less Than 30 53 Thyroid Panel 04/21/2010 Free Thyroxine 0.80 NG/ML 0.61-1.24 Thyroxine 5.2 g/dL 5-12 TSH 2.07 MIU/ML 0.34-5.60 Laboratory test finding 12/20/2009 Quickstrep negative Negative Throat - Beta Strep Fma negative@48hrs Lipid Profile 04/10/2009 Cholesterol 235 mg/dL High 120-200 HDL 53 mg/dL 30-85 Triglycerides 175 mg/dL 30-200 HDL Risk Factor 4.4 CALC 4.2-7.0 LDL (Calculated) 147 CALC High 0-129 VLDL (Calculated) 35 mg/dL 0-50 Comprehensive Metabolic Prof 04/10/2009 Albumin 4.1 g/dL 3.8-5.5 Alk. Phos. 73 U/L 30-110 Alt (SGPT) 11 U/L 7-35 Ast (Sgot) 23 U/L 5-34 BUN 20 mg/dL 6-26 Calcium 9.2 mg/dL 8.6-10.2 Chloride 107 mEq/L 94-112 Creatinine 0.9 mg/dL 0.6-1.4 Carbon Dioxide 26 mEq/L 21-32 Glucose 104 mg/dL 70-105 Sodium 145 mEq/L 134-149 Total Bilirubin 0.3 mg/dL 0.2-1.3 Total Protein 6.7 g/dL 6.3-8.1 Potassium 5.0 mEq/L 3.6-5.5 Globulin 2.6 g/dL 2.0-4.8 A/G Ratio 1.6 Calc 0.6-2.2 BUN/Creat Ratio 22.9 Calc 8.0-36.0 Laboratory test finding 04/10/2009 TSH 3.66 mIU/L 0.50-6.00 Complete Blood Count 04/10/2009 WBC 6.0 x10^3/uL 3.6-9.6 Gran# 3.8 x10^3/uL 1.5-7.2 Gran% 63.8 % 42.2-75.2 HCT 35 % Low 36-50 HGB 11.4 g/dL Low 12.1-17.2 Lymph# 1.7 x10^3/uL 0.7-4.9 Lymph% 28.7 % 20.5-51.1 MCH 23.6 pg Low 27.6-33.3 MCV 71.9 fL Low 82.2-97.4 MCHC 32.8 g/dL Low 33.0-35.5 Mo# 0.4 x10^3/uL 0.1-0.9 Mo% 7.5 % 1.7-9.3 MPV 9.1 fL 7.4-10.4 PLT 350 x10^3/uL 150-400 RBC 4.82 x10^6/uL 3.90-5.70 RDW 15.8 % High 11.6-13.7 Laboratory test finding 03/30/2008 Quickstrep NEGATIVE Negative Throat - Beta Strep Fma negative negative Lipid Profile 03/05/2008 Cholesterol 256 mg/dL High 120-200 54 HDL 46 mg/dL 30-85 54 Triglycerides 156 mg/dL 30-200 54 HDL Risk Factor 5.5 CALC 4.2-7.0 54 LDL (Calculated) 178 CALC High 0-129 54 VLDL (Calculated) 31 mg/dL 0-50 54 Comprehensive Metabolic Prof 03/05/2008 Albumin 4.3 g/dL 3.8-5.5 54 Alk. Phos. 58 U/L 30-110 54 Alt (SGPT) 10 U/L 7-35 54 Ast (Sgot) 23 U/L 5-34 54 BUN 19 mg/dL 6-26 54 Calcium 9.0 mg/dL 8.6-10.2 54 Chloride 101 mEq/L 94-112 54 Creatinine 1.0 mg/dL 0.6-1.4 54 Carbon Dioxide 26 mEq/L 21-32 54 Glucose 98 mg/dL 70-105 54 Sodium 139 mEq/L 134-149 54 Total Bilirubin 0.6 mg/dL 0.2-1.3 54 Total Protein 7.4 g/dL 6.3-8.1 54 Potassium 4.8 mEq/L 3.6-5.5 54 Globulin 3.0 g/dL 2.0-4.8 54 A/G Ratio 1.4 Calc 0.6-2.2 54 BUN/Creat Ratio 17.7 Calc 8.0-36.0 54 Laboratory test finding 03/05/2008 TSH 2.54 mIU/L 0.50-6.00 54 Complete Blood Count 03/05/2008 WBC 5.0 x10^3/u 3.6-9.6 54 Gran# 3.1 x10^3/u 1.5-7.2 54 Gran% 61.2 % 42.2-75.2 54 HCT 34 % Low 36-50 54 HGB 11.3 g/dL Low 12.1-17.2 54 Lymph# 1.6 x10^3/u 0.7-4.9 54 Lymph% 32.2 % 20.5-51.1 54 MCH 24.2 pg Low 27.6-33.3 54 MCV 72.6 fL Low 82.2-97.4 54 MCHC 33.3 g/dL 33.0-35.5 54 Mo# 0.3 x10^3/u 0.1-0.9 54 Mo% 6.6 % 1.7-9.3 54 MPV 8.9 fL 7.4-10.4 54 PLT 406 x10^3/u High 150-400 54 RBC 4.66 x10^6/u 3.90-5.70 54 RDW 15.2 % High 11.6-13.7 54 Laboratory test finding 09/15/2005 [facility] Labs TYPE;BMP;PT;APTT; See Image Report CBC Electronic (a) 05/22/2005 WBC 4.1 3.6-9.6 Lymphocytes 29.3 % 20.5 - 51.1 Monocytes 7.8 % 1.7-9.3 Granulocytes 62.9 % 42.2 - 75.2 Lymphocytes 1.2 10^3/uL 0.7 - 4.9 Monocytes 0.3 10^3/uL 0.1 - 0.9 Granulocytes 2.6 10^3/uL 1.5 - 7.2 RBC 4.94 3.90-5.70 Hemoglobin (Fma/CMC/CTX) 14.2 g/dL 12.1 - 17.2 Hematocrit (Fma/CMC/CTX) 42.5 % 36.1 - 50.3 Mean Corpuscular Vol 86.1 82.2-97.4 Mean Corpuscular Hemaglobin 28.8 27.6-33.3 Mean Corpuscular Hemo Concen 33.5 33.0-36.0 RDW 13.0 11.6-13.7 Platelets 336. 10^3/ul 150-400 Mean Platelet Volume 9.0 7.4-10.4 Comp Metabolic (a) 05/22/2005 Glucose, Serum (a/[facility]/CTX) 94 mg/dL 70- 105 Female BUN ([facility]/Centrex) 17 mg/dL 6-26 Creatinine, Serum 0.9 mg/dL 0.6-1.4 BUN/Creatinin Ratio 9.3 8.0-36 Sodium 143 134-149 Potassium 4.4 3.6-5.5 Chloride 103 mEq/L 94-112 Co2 26 21-32 Calcium (a/[facility]rex) 9.3 mg/dL 8.6-10.2 Total Protein 6.6 g/dL 6.3-8.1 Albumin ([facility]) 4.0 3.8-5.5 Globulin 2.6 2.0-4.8 A/G Ratio (A/G Ratio) 1.5 0.6-2.2 Alkaline Phosphatase (F/C/CTX) 85 U/L 30-110 Alt (SGPT) Female (a) 17 7-35 Ast Sgot 30 U/L 5-34 Bilirubin, Total 0.4 mg/dL 0.2-1.3 Laboratory test finding 05/22/2005 TSH ([facility]) 2.71 uIU/ml 0.5- 6.0 Lipid Profile ([facility]) 05/22/2005 Cholesterol 215 mg/dL High 120-200 Female Triglyceride 165 mg/dL 30-200 HDL-Chol 41 mg/dL 30-85 LDL, Calculated ([facility]) 142 CALC High 0-129 LDL Direct (/[facility]) - mg/dL 0-130 VLDL 33 0-50 HDL Risk Factor (a) 5.3 CALC 4.2-7.0 Ua - Micro ([facility]) 05/17/2005 Appearance CLEAR Color LT YELLOW Glucose NEG Bilirubin NEG Ketones NEG SP Grav 1.010 Blood TRACE-INTACT PH 7.0 Protein, Random Urine NEG Urobil 0.2 Nitrite NEG Leukocytes NEG Hyaline - /Lpf Granular - /Lpf WBC, Fluid 1-2 RBC, Fluid 0-1 Mucus - /Lpf Epith OCC /Lpf Bacteria TRACE /Hpf Amorphous - /Lpf Crystals - /Lpf Z#Comments - Christelle W/RF ([facility]) 11/28/2003 Rheumatoid Factor (RF) <11.0 IU/mL 0 - 20 CBC Electronic ([facility]) 11/28/2003 WBC 4.8 3.6-9.6 Lymphocytes 37.2 % 20.5 - 51.1 Monocytes 5.3 % 1.7-9.3 Granulocytes 57.5 % 42.2 - 75.2 Lymphocytes 1.8 10^3/uL 0.7 - 4.9 Monocytes 0.3 10^3/uL 0.1 - 0.9 Granulocytes 2.8 10^3/uL 1.5 - 7.2 RBC 4.02 3.90-5.70 Hemoglobin ([facility]/CTX) 12.1 g/dL 12.1 - 17.2 Hematocrit ([facility]/CTX) 35.5 % Low 36.1 - 50.3 Mean Corpuscular Vol 88.2 82.2-97.4 Mean Corpuscular Hemaglobin 30.1 27.6-33.3 Mean Corpuscular Hemo Concen 34.1 33.0-35.5 RDW 13.9 High 11.6-13.7 Platelets 246 10^3/ul 150-400 Mean Platelet Volume 9.5 7.4-10.4 Antinuclear AB (Christelle) 11/28/2003 Antinuclear AB (Christelle) POSITIVE Titer, Christelle TITER=[phone] Laboratory test finding 06/11/2002 Quickstrep NEGATIVE Negative Throat Culture NEGATIVE CBC With Diff ([facility]) 12/12/2001 WBC 6.5 3.6-9.6 Lymphocytes 28.1 % 20.5 - 51.1 Monocytes 6.7 % 1.7-9.3 Granulocytes 65.2 % 42.2 - 75.2 Lymphocytes 1.8 10^3/uL 0.7 - 4.9 Monocytes 0.4 10^3/uL 0.1 - 0.9 Granulocytes 4.2 10^3/uL 1.5 - 7.2 RBC 4.64 3.90-5.70 Hemoglobin 14.5 g/dL 12.1 - 17.2 Hematocrit 43.2 % 36.1 - 50.3 Mean Corpuscular Vol 93.0 82.2-97.4 Mean Corpuscular Hemaglobin 31.1 27.6-33.3 Mean Corpuscular Hemo Concen 33.5 33.0-34.8 RDW 11.9 11.6-13.7 Platelets 293 10^3/ul 150-400 Mean Platelet Volume 8.4 7.4-10.4 Free T4/TSH Profile ([facility]) 12/12/2001 Free T4 1.33 ng/dL 0.7-1.55 TSH 3.13 0.4-4.2 Lipid Profile ([facility]) 12/12/2001 Cholesterol 178 mg/dL 140-200 Triglyceride 145 mg/dL 30-150 VLDL 29 0-50 LDL-Calculated 99 0-160 HDL-Chol 50 35-85 Comp Metabolic ([facility]) 12/12/2001 Albumin 4.6 3.8-5.5 Alkaline Phosphatase 44 U/L 36-117 Bilirubin, Total 0.3 mg/dL 0.2-1.3 BUN 11 7-26 Calcium 9.3 mg/dL 8.6-10.0 Creatinine 0.9 mg/dL 0.6-1.4 Glucose 92 mg/dL 70 - 118 Ast Sgot 22 U/L 5-40 Alt (SGPT) 11 10-40 Total Protein 7.1 g/dL 6.4-8.3 Sodium 144 134-149 Potassium 5.0 3.6-5.5 Chloride 107 mEq/L 94-112 Co2 27 21-32 Globulin 2.5 2.0-4.8 Albumin / Globulin Ratio 1.8 0.6-2.2 BUN/Creatinin Ratio 12.2 8.0-36 Ua - Micro ([facility]) 12/12/2001 Appearance CLEAR/LT YELLOW Glucose NEG Bilirubin NEG Ketones NEG SP Grav 1.020 Blood TRACE-LYSED PH 6.0 Protein NEG Urobil 0.2 Nitrite NEG Leukocytes NEG Hyaline - /Lpf Granular - /Lpf WBC'S 4-8 RBC'S 3-6 Mucus - /Lpf Epith FEW Bacteria 2+ Amorphous - /Lpf Crystals - /Lpf Comments - 1 Normal Range 180 to 914 Indeterminate Range 145 to 180 Deficient Range <145 2 Test Performed by: [facility] [address] [address] [employer]: Miguel Angel Somers II, M.D., Ph.D. 3 RESULTS VERIFIED BY REPEAT ANALYSIS 4 consistent w/ previous results 5 FASTING 6 RESULTS VERIFIED BY REPEAT ANALYSIS 7 1 SST 8 Effective May 12, 2015 the reference interval for UIBC will be changing to: Male 0 - 30 days Not Estab. 1 - 6 months 127 - 340 7 months - 17 years 148 - 395 >17 years 111 - 343 Female 0 - 30 days Not Estab. 1 - 6 months 127 - 340 7 months - 60 years 131 - 425 >60 years 118 - 369 9 Please note reference interval change 10 RESULTS VERIFIED BY REPEAT ANALYSIS 11 1 sst 12 NEGATIVE FOR INTRAEPITHELIAL LESION AND MALIGNANCY. CELLULAR CHANGES ASSOCIATED WITH ATROPHY ARE PRESENT. 13 Satisfactory for evaluation. Endocervical component may not be distinguished in cases of atrophy. 14 V76.2 ; Screening for malignant neoplasm of the cervix 15 Adeline Newell, [employer] (ASCP) 16 The Pap smear is a screening test designed to aid in the detection of premalignant and malignant conditions of the uterine cervix. It is not a diagnostic procedure and should not be used as the sole means of detecting cervical cancer. Both false-positive and false-negative reports do occur. 17 This liquid based ThinPrep(R) pap test was screened with the use of an image guided system. 18 This high-risk HPV test detects thirteen high-risk types (16/18/31/33/35/39/45/51/52/56/58/59/68) without differentiation. 19 RESULTS VERIFIED BY REPEAT ANALYSIS 20 RESULTS VERIFIED BY REPEAT ANALYSIS 21 results lesa'd 22 [facility] [employer] DEPARTMENT OF PATHOLOGY or Ext. 8256, Fax COMBINED HPV / PAPER SAMPLE CLERK CYTOLOGY REPORT Patient: KAYLA POLLARD : 1955 AGE: 58 Y SEX: F Acct: [id number] Procedure Date: 11/13/2013 Date Received: 11/14/2013 Requesting Provider: SHWETHA FULLER NP Location: [facility] [place] Case No. [id number] Requisition #: [id number] CYTOLOGIC INTERPRETATION: SPECIMEN ADEQUACY SATISFACTORY FOR EVALUATION, ENDOCERVICAL TRANSFORMATION ZONE COMPONENT PRESENT GENERAL CATEGORIZATION NEGATIVE FOR INTRAEPITHELIAL LESIONS OR MALIGNANCY RECOMMENDATIONS See Related Reference Test Result below. Refer to the corresponding web sites for 2012 updated general recommendation guidelines of U.S. preventive service task force for cervical cancer screening, and www.asccp.org//iewwijxtu9015. COMMENTS Thin Prep Pap tests are examined with an FDA approved location-guidance system. RELATED REFERENCE TEST RESULT: HPV: "HIGH RISK" Source: CERVICAL Result: NEGATIVE Test Method: HC2 Performing Location: METHODOLOGY: HPV high risk is performed with the FDA approved Digene HC2 method whenever the specimen is cellular enough and the quantity of sample remaining in the vial after Thin Prep PAP slide preparation equals or greater than 4 ml. In cases of smaller sample (0.5 to 3.9 ml) the HPV high risk testing will be performed with Low Volume rfx. ( RN) Digene Hybrid Capture (HC2). FDA approved and detects 13 "high risk" HPV types (16/18/31/33/35/39/45/51/52/56/58/59/68) without differentiation. (02 BN) Low Volume rfx detects fourteen "high risk" HPV types (16/18/31/33/35/39/45/51/52/56/58/59/66/68) without differentiation. SPECIMEN SUBMITTED: * * (HPVR) THIN PREP W/HPV * * ENDOCERVICAL RELEVANT HISTORY: Menopause: Y Previous smear date: 08/08/2012 Comment: LMP: DETECTIVE PRECINCT : 2 PARA: 0 Screened/Rescreened Electronically Signed Sign Out Date/Time: by: by: DARLENE MISSY MICHEL, 11/16/2013 16:09 CT(ASCP) Note: The Pap smear is a screening test designed to aid in the detection of premalignant and malignant conditions of the uterine cervix. It is not a diagnostic procedure and should not be used as the sole means of detecting cervical cancer. Both false-positive and false-negative reports do occur. 00 UA Pap Smear performed at [facility] Dir: [place], [address] [place] [phone] 01 international relations professor [facility] [place] Dir: Vania Echeverria MD, [address] [facility] [address] 02 [facility] [place] Dir: Miguel Angel Cantrell MD, [address] [place] [phone] For inquiries regarding HPV test results, the physician may contact [facility]: [phone] . 23 RESULTS VERIFIED BY REPEAT ANALYSIS 24 RESULTS VERIFIED BY REPEAT ANALYSIS 25 RESULT LESA'D 26 RESULT LESA'D 27 [facility] DEPARTMENT OF PATHOLOGY or Extension 6609 PAPER SAMPLE CLERK CYTOLOGY REPORT PATIENT: KAYLA POLLARD : 1955 AGE: 57 Y SEX: F ACCT: [id number] PROCEDURE DATE: 08/08/2012 DATE RECEIVED: 08/09/2012 REQUESTING PROVIDER: SHWETHA FULLER NP LOCATION: [facility] [place] Case No. [id number] PATIENT DATA: [id number] SPECIMEN SUBMITTED: * * (HPVII) THIN PREP W/HPV (LSIL/ASC/MADDY) * * ENDOCERVICAL RELEVANT HISTORY: Prev.normal: 08/04/11 Comment: DETECTIVE PRECINCT SPECIMEN ADEQUACY SATISFACTORY FOR EVALUATION. THE PRESENCE OF TRANSFORMATION ZONE COMPONENT CANNOT BE DETERMINED DUE TO ATROPHIC CHANGES. GENERAL CATEGORIZATION NEGATIVE FOR INTRAEPITHELIAL LESIONS OR MALIGNANCY RECOMMENDATIONS Refer to the following websites for 2012 updated general recommendation guidelines: www.uspreventiveservicetaskforce.org/uspstf/uspscerv.htm and www.asccp.org//lapcwukdy2012 COMMENTS Thin Prep Pap tests are examined with an FDA approved location-guidance system. ADDITIONAL COPIES SENT TO: Screened/Rescreened Electronically Signed Sign Out Date/Time: by: by: BETSY GONSALVES(ASC) 08/10/2012 10:28 Note: The Pap smear is a screening test designed to aid in the detection of premalignant and malignant conditions of the uterine cervix. It is not a diagnostic procedure and should not be used as the sole means of detecting cervical cancer. Both false-positive and false-negative reports do occur. 00 UA Pap Smear performed at [facility] Dir: Ol[place], [address] [place] [phone] 01 international relations professor [facility] [place] Dir: Reggie Chawla MD, [address] [facility] [phone] 02 [facility] [place] Dir: Miguel Angel Cantrell MD, [facility] [address] For inquiries regarding HPV test results, the physician may contact [employer]: [phone] . 28 result lesa'd 29 result lesa'd 30 RESULT LESA'D 31 RESULT LESA'D 32 RESULT LESA'D 33 Non-immune <5 Equivocal 5 - 9 Immune >9 34 RESULT LESA'D 35 [facility] DEPARTMENT OF PATHOLOGY or Extension 0287 PAPER SAMPLE CLERK CYTOLOGY REPORT PATIENT: KAYLA POLLARD : 1955 AGE: 56 Y SEX: F ACCT: [id number] PROCEDURE DATE: 08/04/2011 DATE RECEIVED: 08/05/2011 REQUESTING PHYSICIAN: SHWETHA FULLER NP LOCATION: [facility] [place] Case No. [id number] PATIENT DATA: [id number] SPECIMEN SUBMITTED: * * (HPVII) THIN PREP W/HPV (LSIL/ASC/MADDY) * * ENDOCERVICAL RELEVANT HISTORY: Menopause: Y Prev.normal: MORE THAN ONE YEAR Comment: LMP: MORE THAN ONE YEAR SPECIMEN ADEQUACY SATISFACTORY FOR EVALUATION. THE PRESENCE OF TRANSFORMATION ZONE COMPONENT CANNOT BE DETERMINED DUE TO ATROPHIC CHANGES. GENERAL CATEGORIZATION NEGATIVE FOR INTRAEPITHELIAL LESIONS OR MALIGNANCY RECOMMENDATIONS Thin Prep Pap tests are examined with an FDA approved location-guidance system. ADDITIONAL COPIES SENT TO: Screened/Rescreened Electronically Signed Sign Out Date/Time: by: by: DARLENE MICHEL, 08/06/2011 11:18 CT(ASCP) The Pap smear is a screening test designed to aid in the detection of premalignant and malignant conditions of the uterine cervix. It is not a diagnostic procedure and should not be used as the sole means of detecting cervical cancer. Both false-positive and false-negative reports do occur. Performed @ [facility] [employer] [address] [place], [place] [id number] 36 results lesa'd 37 1 purple top tube 38 Tick testing does not diagnose Lyme disease in humans. Results indicate only whether or not B. burgdorferi was detected in the tick. If you believe you have any symptoms of Lyme disease consult your physician immediately. 39 RESULT LEAS'D 40 FASTING; 1 LAV 41 RESULT LESA'D 42 results rechecked 43 1 LAV 44 ---- RUN DATE: 10/06/10 [facility] NMI LIVE PAGE 1 RUN TIME: 1425 Specimen Inquiry RUN USER: INTERFACE -- Name: ANTONIODONKAYLA Status: REG REF Re10/05/10 Age/Sex: 55/F Unit#: [id number] Location: [facility] : 53 -- Specimen: [id number] SOUT Spec Date: 10/05/[address]: Alejandro angela MD Spec Type: SURGICAL P Received: 10/05/10-0439 Copies to: Jay Hicks MD SPECIMEN SECOND PORTION DUODENAL BIOPSY HISTORY POST-OP DIAGNOSIS: Esophagus - normal; stomach - large hiatal hernia (sma ll Destin erosions); duodenum - normal bulb to 4th portion CLINICAL INFORMATION: Anemia GROSS DESCRIPTION The specimen is received in formalin labelled Kayla Pollard, Second Portion Duodenal Biopsy, and consists of multiple campos, soft tissue fragments measuring 0.7 x 0.3 x 0.2 cm. in aggregate. Submitted entirely, one cassette. DIAGNOSIS Small bowel, duodenum, biopsy: Segment of small bowel mucosa with normal villous architecture and no significant pathologic abnormality. Signed Electronically by: ISRAEL WEST MD 10/06/10 9077 -- -- DEPARTMENT OF PATHOLOGY, [address] [place] [address] [facility] Permit #[id number] sIrael West M.D. Director Shaista Limon M.D. Home Health Registered Nurse Dir letitia -- 45 CONSISTENT WITH PREVIOUS RESULTS [address] [place] [place] [address] [employer] DEPARTMENT OF PATHOLOGY or Extension 8258 PAPER SAMPLE CLERK CYTOLOGY REPORT PATIENT: KAYLA POLLARD : 1955 AGE: 55 Y SEX: F ACCT: [id number] PROCEDURE DATE: 07/02/2010 DATE RECEIVED: 07/03/2010 REQUESTING PHYSICIAN: SHWETHA FULLER NP LOCATION: [facility] [place] Case No. [id number] PATIENT DATA: [id number] SPECIMEN SUBMITTED: * * (HPVII) THIN PREP W/HPV (LSIL/ASC/MADDY) * * ENDOCERVICAL RELEVANT HISTORY: Menarche: Y Prev.normal: 2008 Comment: DETECTIVE PRECINCT SPECIMEN ADEQUACY SATISFACTORY FOR EVALUATION, ENDOCERVICAL TRANSFORMATION ZONE COMPONENT PRESENT GENERAL CATEGORIZATION NEGATIVE FOR INTRAEPITHELIAL LESIONS OR MALIGNANCY ADDITIONAL COPIES SENT TO: Screened/Rescreened Electronically Signed Sign Out Date/Time: by: by: DARLENE MISSY MARILU, 07/06/2010 12:13 CT(ASCP) Thin Prep Pap tests are examined with an FDA-approved location-guidance system (66153). Performed @ [facility], [employer] [address] [place] [phone] 47 THE URINE SPECIMEN WAS TESTED AT THE LISTED CUTOFFS: DRUG CLASS TEST LEVEL (NG/ML) AMPHETAMINES 300 BARBITUATES 200 BENZODIAZEPINE METABOLITES 200 COCAINE METABOLITES 300 CANNABINOIDS 25 OPIATES 200 PCP 25 THIS IS A SCREENING PROCEDURE. POSITIVE RESULTS ARE NOT CONFIRMED. SPECIMEN WAS RECEIVED WITHOUT CHAIN OF CUSTODY. RESULTS SHOULD BE USED FOR MEDICAL PURPOSES ONLY. . 48 Anion gap measurement may be of limited value in the presence of any alkalosis, especially in a combined acid base disorder. . 49 A metabolite of Naproxen, O-desmethylnaproxen, has been shown to interfere with the [place] method for measuring total bilirubin. Samples from patients who have taken Naproxen have shown spurious elevation in total bilirubin levels. 50 Because ethnic data is not always readily available, this report includes an eGFR for both -Americans and non- Americans. The National Kidney Disease Education Program (NKDEP) does not endorse the use of the MDRD equation for patients that are not between the ages of 18 and 70, are , have extremes of body size, muscle mass, or nutritional status, or are non- or non-. According to the National Kidney Foundation, irrespective of diagnosis, the stage of the disease is based on the level of kidney function: Stage Description GFR(mL/min/1.73 m(2)) 1 Kidney damage with normal or decreased GFR 90 2 Kidney damage with mild decrease in GFR 60-89 3 Moderate decrease in GFR 30-59 4 Severe decrease in GFR 15-29 5 Kidney failure <15 (or dialysis) 51 TOXIC LEVELS: GREATER THAN 150 MCG/ML @ 4HR POST INGEST GREATER THAN 50 MCG/ML @ 12HR POST INGEST The detection limit for ACETAMINOPHEN is 10.0 mcg/ml . Values less than 10.0 mcg/ml cannot be accurately measured. . 52 The detection limit for ETHANOL is 10.0 mg/dl . Values less than 10.0 mg/dl cannot be accurately measured. . 53 The detection limit for SALICYLATE is 4.0 mg/dl. Values less than 4.0 mg/dl cannot be accurately measured. . 54 FASTING 55 HOMOGENOUS PATTERN Procedures Date CPT Code Description Status Comment 03/05/2016 Mammogram Completed 06/27/2015 84285 Remove Impacted Cerumen Completed 06/27/2015 40406 Remove Impact Cerumen Irrigati Completed 12/27/2014 Mammogram Completed 12/13/2014 44137 Finger Or Heel Stick Completed 08/30/2014 30828 Dxa Bone Density Study One Or More Sites Axial Completed Skeleton 11/30/2013 Mammogram Completed 08/17/2012 Mammogram Completed 08/08/2012 12848 Remove Skin Tags Up To 15 Completed 08/16/2011 Mammogram Completed 03/23/2011 97140 Electrocardiogram Complete Completed 09/16/2010 Colonoscopy Completed 07/10/2010 Mammogram Completed 04/08/2009 Mammogram Completed 03/30/2008 69637 Pulse Oximetry Completed 03/05/2008 Mammogram Completed 04/25/2007 Bone Mineral Density Test Completed Normal 11/08/2002 47167 Inject/Drain Joint/Bursa Intermediate Completed 11/21/2001 81158 Electrocardiogram Complete Completed Encounters Type Date Location Provider CPT E/M Dx Office Visit 12/07/2016 3:40p Main Office Jay Hicks M.D. 26382 R00.1 Office Visit 04/13/2016 3:00p Main Office Jay Hicks M.D. 93303 R53.83 F32.89 E61.1 G56.02 Office Visit 03/23/2016 3:00p Main Office Yasmin Galvan 71711 Z01.419 Z23 Office Visit 02/18/2016 9:20a Main Office Jay Hicks M.D. 46590 D50.8 R53.83 F32.89 Office Visit 11/11/2015 6:20p Main Office Jay Hicks M.D. 89182 M25.561 Office Visit 07/28/2015 7:30p Main Office Veronika Zhou M.D. 54996 H93.13 Office Visit 06/27/2015 4:15p Main Office MARK Buchanan 00924 H91.93 H61.23 Office Visit 05/07/2015 5:40p Main Office Todd Diez M.D. 88135 F41.1 D50.9 Office Visit 02/03/2015 3:45p [place] [address] D50.9 F41.1 Office Visit 01/15/2015 9:30a Main Office Todd Diez M.D. 63110 300.00 Office Visit 12/24/2014 2:00p Main Office Yasmin Galvan 56340 V72.31 Office Visit 12/13/2014 9:30a [facility] Todd Diez M.D. 50843 300.00 790.21 Office Visit 10/11/2014 10:15a Main Office Jay Hicks M.D. 40157 v74.1 Office Visit 10/08/2014 3:00p Main Office Shwetha Fuller Afnp-C 47996 V74.1 110.1 790.6 Office Visit 08/20/2014 3:20p Main Office Jay Hicks M.D. 13224 285.9 530.81 327.23 780.79 413.1 Office Visit 11/15/2013 1:30p Main Office Shwetha Fuller Afnp-C 41611 V74.1 Office Visit 11/13/2013 1:00p Main Office Shwetha Fuller Afnp-C 55612 V72.31 V74.1 Office Visit 06/18/2013 9:30a Main Office Lynn Joseph [facility]np-C 93133 727.03 844.8 Office Visit 11/09/2012 9:00a Main Office Jay Hicks M.D. 89862 285.9 272.4 311 327.23 530.81 V74.1 Office Visit 08/08/2012 12:00p Main Office Shwetha Fuller Ivanross-C 93358 V72.31 709.8 701.9 Office Visit 05/11/2012 8:40a Main Office Jay Hicks M.D. 95662 285.9 272.4 311 v04.81 V06.1 v06.5 Office Visit 12/06/2011 3:45p Main Office Jay iHcks M.D. 26424 V74.1 V70.3 Office Visit 11/04/2011 8:40a Main Office Jay Hicks M.D. 13475 285.9 272.4 311 530.81 Office Visit 08/04/2011 9:00a Main Office Shwetha Fuller Afnp-C 19447 V72.31 599.72 Office Visit 06/24/2011 9:00a Main Office Jay Hicks M.D. 95113 285.9 311 272.4 782.9 272.1 Office Visit 05/28/2011 11:00a [facility] Office Shwetha Fuller Afnp-C 52850 E906.4 912.4 Office Visit 03/23/2011 8:00a Main Office Jay Hicks M.D. 52706 530.81 285.9 311 V70.0 272.4 Office Visit 01/18/2011 3:40p [facility] Office Jay Hicks M.D. 15812 530.81 285.9 311 Office Visit 11/24/2010 10:30a Main Office MARK Buchanan 41424 133.0 Office Visit 07/02/2010 10:30a Main Office Shwetha FullerYasmin 23097 V76.2 V72.31 Office Visit 06/12/2010 10:20a [facility] Office Jay Hicks M.D. 53763 311 486 530.81 388.30 Office Visit 05/05/2010 12:40p Main Office Reece Kimbrough M.D. 27437 380.4 311 Office Visit 12/20/2009 10:15a Main Office MARK Buchanan 12709 465.9 Office Visit 03/18/2009 4:20p Main Office Jay Hicks M.D. 86145 272.4 311 719.44 782.9 782.0 Office Visit 07/17/2008 5:00p Main Office Hina Ribera M.D. 17104 309.9 Office Visit 04/13/2008 11:30a Main Office Jay Hicks M.D. 28496 784.49 530.81 Office Visit 04/06/2008 10:15a Main Office Yasmin Gregg 70466 464.20 Office Visit 03/30/2008 1:45p Main Office Darian Hernandez M.D. 06048 462 Office Visit 12/01/2007 2:20p Main Office Jay Hicks M.D. 40909 305.1 311 530.81 780.51 Office Visit 04/07/2007 4:00p Main Office Jay Hicks M.D. 33713 530.81 311 305.1 Office Visit 06/16/2006 2:50p Main Office Jay Hicks M.D. 28902 530.81 311 786.50 Office Visit 08/31/2005 3:45p Main Office NORBERTO Smith 15702 530.81 Office Visit 05/17/2005 2:00p [facility] Office Jay Hicks M.D. 30259 599.7 530.81 311 V70.0 786.09 V06.5 Office Visit 05/10/2005 8:00p Main Office Letitia Danielson [facility] 10348 530.81 Office Visit 04/05/2005 8:00p Main Office Letitia Danielson, [facility] 76592 530.81 Office Visit 01/27/2005 2:45p Main Office Letitia Danielson, [facility] 94251 300.00 311 Office Visit 01/06/2004 4:30p Main Office Letitia Delunaryan [facility] 72488 692.9 Office Visit 11/21/2003 8:15p Main Office Mahnaz Son [facility] 58898 719.44 Office Visit 07/17/2003 11:00a Main Office Letitiadonte DelunaErum, [facility] 35360 477.9 311 300.00 Office Visit 06/29/2003 10:45a Main Office Mahnaz Son [facility] 51457 110.9 Office Visit 01/15/2003 3:00p Main Office Jay Hicks M.D. 03891 300.4 Office Visit 11/23/2002 4:10p Main Office Tian Kam M.D. 50419 726.32 Office Visit 10/24/2002 4:00p Main Office Tian Kam M.D. 17344 726.32 Office Visit 07/03/2002 2:00p Main Office Jay Hicks M.D. 67291 238.2 Office Visit 11/21/2001 6:40p Main Office Jay Hicks M.D. 18884 Office Visit 08/05/2001 11:10a Main Office Jay Hicks M.D. 99672 Office Visit 02/18/2001 11:20a Main Office Israel Mckeon M.D. 75472 Office Visit 09/26/2000 4:00p Main Office Jay Hicks M.D. 34111 Office Visit 04/22/2000 3:00p Main Office Jay Hicks M.D. 31160 Plan of Care Future Appointment(s):10/13/2017 8:40 am - Jay Hicks M.D. at Main [facility]1904/12/2017 - Jay Hicks M.D.F32.89 Other specified depressive episodesComments:doing well on present medication , will continue lexapro and mcxtsO48.8 Other iron deficiency anemiasComments:no problem now after her xaxpfwyB05.8 Other skin changesComments:would like referral to Dermatology for follow upM79.645 Pain in left finger(s)Comments:has left thumb pain , will refer to physical therapy, may need evaluation of carpal tunnel, nerve conduction in the past showed moderate carpal tunnel, will try wrist splintAllNew Medication:Vitamin D 2000 UnitComments:~B_~U_Medication Management~ b_~u_ Patient Understands medications she's taking? Yes No Are there Barriers to Adherence? Yes No Has the patient been asked about herbal supplements and therapies, and OTC meds? Yes No get mammogram needs pap, pelvic in 07/2017, patient awarecolonoscopy needed in 2020Follow up:return for follow up in 6 months
[2017-04-18 23:57] LABS: ABS Basophils 0.1 10^3/ul (0-0.2); ABS Eosinophils 0.5 10^3/ul (0-0.6); ABS Lymphocytes 2.3 10^3/ul (1.0-4.8); ABS Monocytes 0.5 10^3/ul (0-0.8); ABS Neutrophils 3.2 10^3/ul (1.5-7.7); ABS Nucleated RBC 0 10^3/ul; Eosinophil % 7.2 % (0-6); Hematocrit 41 % (35-47); Hemoglobin 13.9 g/dl (12.0-16.0); Mean Corpuscular HGB Conc 34 g/dl (31-36); Mean Corpuscular Hemoglobin 29 pg (27-31); Mean Corpuscular Volume 86 fL (80-97); Mean Platelet Volume 9 um3 (7.4-10.4); Nucleated Red Blood Cells % 0; Platelet Count 288 10^3/ul (150-450); Red Blood Count 4.75 10^6/ul (4.0-5.4); Red Cell Distribution Width 14 % (10.5-15); White Blood Count 6.5 10^3/ul (3.5-10.8)
[2017-04-19 00:12] LABS: EGFR Non-African American 67.5 (>60)
[2017-04-19 02:20] LABS: Urine Appearance Clear; Urine Blood Negative (Negative); Urine Color Yellow; Urine Ketones Negative (Negative); Urine Protein Negative (Negative); Urine Specific Gravity 1.008 (1.010-1.030); Urine Urobilinogen Negative (Negative)
--- NOTE | 2017-04-19 06:53 | ED ---
Alexi Hernandez Thomas, scribed for Hilda Harrell MD on 04/18/17 at 2339 . Complex/Multi-Sys Presentation - HPI Summary HPI Summary: The patient is a 62 year old female brought in by ambulance complaining of anxiety. The patient called an ambulance because she is upset. Per EMS, the patient consumed alcohol and smoked marijuana prior to arrival. The patient denies shortness of breath, chest pain, or any other complaints or pain. - History Of Current Complaint Time Seen by Provider: 04/18/17 23:29 Hx Obtained From: Patient, EMS Onset/Duration: Still Present Timing: Constant Severity Currently: Moderate Aggravating Factor(s): Alcohol, marijuana Alleviating Factor(s): None Associated Signs And Symptoms: Positive: Other - Upset, anxiety; NEGATIVE: chest pain, SOB, any pain or other complaints - Allergies/Home Medications Allergies/Adverse Reactions: Allergies Allergy/AdvReac Type Severity Reaction Status Date / Time Pravastatin AdvReac Intermediate Muscle Ache Verified 06/01/16 11:20 PMH/Surg Hx/FS Hx/Imm Hx Previously Healthy: No Cardiovascular History: Reports: Hx Hypercholesterolemia Respiratory History: Reports: Hx Sleep Apnea - current CPAP good compliance GI History: Reports: Hx Gastroesophageal Reflux Disease, Hx Hiatal Hernia Musculoskeletal History: Reports: Hx Orthopedic Injury - ankle FX per PCP record Denies: Hx Rheumatoid Arthritis, Hx Osteoporosis Sensory History: Reports: Hx Contacts or Glasses Opthamlomology History: Reports: Hx Contacts or Glasses Psychiatric History: Reports: Hx Depression - controlled by meds - Cancer History Hx Chemotherapy: No Hx Radiation Therapy: No - Family History Known Family History: Positive: Other - Patient denies relevant FHx - Social History Alcohol Use: Weekly Alcohol Amount: 5 drinks/week Substance Use Type: Reports: Marijuana Smoking Status (MU): Former Smoker Review of Systems Negative: Chest Pain Negative: Shortness Of Breath Negative: Other - any pain Positive: Anxious, Other - Upset All Other Systems Reviewed And Are Negative: Yes Physical Exam - Summary Physical Exam Summary: VITAL SIGNS: Reviewed. GENERAL: Patient is a well-developed and nourished female who is lying comfortable in the stretcher. Patient is not in any acute respiratory distress. On physical exam, the patient is somewhat uncooperative. She seems restless on the stretcher. However, she is alert and oriented x 3. HEAD AND FACE: No signs of trauma. No ecchymosis, hematomas or skull depressions. No sinus tenderness. EYES: PERRLA, EOMI x 2, No injected conjunctiva, no nystagmus. EARS: Hearing grossly intact. Ear canals and tympanic membranes are within normal limits. MOUTH: Oropharynx within normal limits. NECK: Supple, trachea is midline, no adenopathy, no JVD, no carotid bruit, no c- spine tenderness, neck with full ROM. CHEST: Symmetric, no tenderness at palpation LUNGS: Clear to auscultation bilaterally. No wheezing or crackles. CVS: Regular rate and rhythm, S1 and S2 present, no murmurs or gallops appreciated. ABDOMEN: Soft, non-tender. No signs of distention. No rebound no guarding, and no masses palpated. Bowel sounds are normal. EXTREMITIES: FROM in all major joints, no edema, no cyanosis or clubbing. NEURO: Alert and oriented x 3. No acute neurological deficits. Speech is normal and follows commands. SKIN: Dry and warm Triage Information Reviewed: Yes Vital Signs Reviewed: Yes Diagnostics - Laboratory Result Diagrams: 04/18/17 23:45 04/18/17 23:45 Lab Statement: Any lab studies that have been ordered have been reviewed, and results considered in the medical decision making process. - EKG 23:30 Cardiac Rate: NL EKG Rhythm: Sinus Rhythm - at 68 BPM EKG Interpretation: Normal intervals. Normal axis. No ischemic changes. Complex Multi-Symp Course/Dx Assessment/Plan: The patient is a 62 year old female brought in by ambulance complaining of anxiety. The patient called an ambulance because she is upset. Per EMS, the patient consumed alcohol and smoked marijuana prior to arrival. The patient denies shortness of breath, chest pain, or any other complaints or pain. On physical exam, the patient is somewhat uncooperative. She seems restless on the stretcher. However, she is alert and oriented x 3. In the ED course the patient was given IV fluids and Ativan. Bloodwork was obtained. Urinalysis is negative for UTI. Urine toxicology is positive for cannabinoids and negative for alcohol. EKG was obtained and it is negative for ischemic changes. The patient was cleared for mental health evaluation and after evaluation by the mental health evaluators, the patient will require evaluation by the psychiatrist in the morning. The patient will be signed out to Dr. Ortega at shift change pending evaluation by the psychiatrist. - Diagnoses Provider Diagnoses: Anxiety Discharge - Discharge Plan Condition: Stable Disposition: OTHER Discharge Disposition Comment: Signed out to Dr. Ortega pending evaluation by the psychiatrist. Referrals: Jay Hicks MD [Primary Care Provider] - The documentation as recorded by the Alexi mclaughlin Thomas accurately reflects the service I personally performed and the decisions made by me, Hilda Harrell MD.
[2017-04-24 07:38] VITALS: BP 00/0
== END 2017-04-19 10:30 ==
LOC: ED 23:26
DX: F41.9 Anxiety disorder, unspecified (principal); F12.10 Cannabis abuse, uncomplicated; Z72.89 Other problems related to lifestyle; Z87.891 Personal history of nicotine dependence; E78.00 Pure hypercholesterolemia, unspecified; G47.30 Sleep apnea, unspecified; K21.9 Gastro-esophageal reflux disease without esophagitis; F32.9 Major depressive disorder, single episode, unspecified
CPT/HCPCS: 36415; 80053; 80307; 80320; 80329; 81003; 84443; 85025; 93005; 96360; 96374; 99285; G0480